=== PATIENT | male | born 1985 | race Caucasian/White ===

== ENCOUNTER 2017-04-07 17:39 | Inpatient (IN) | payer OTHER ==
[~2017-04-07] VITALS: Ht 182.9 cm; Wt 82.1 kg
[~2017-04-07 17:39] MED LIST: CITA20TA4 PO; HYDR-3533 PO; IBUP600T26 PO; METH750T2 PO; PHEN1TAB49 PO; TAMS0.4C67 PO
[2017-04-07 17:42] VITALS: BP 130/102; PULSE 77; RESP 15; TEMP 97.8; O2SAT 99
[2017-04-07] MEDS ORDERED: SODIUM CHLOR 0.9% 1000 ML INJ 1,000 ML IV SCH (19:58)
[2017-04-07 20:00] VITALS: BP 132/88; PULSE 65; RESP 18; O2SAT 98
[2017-04-07] MEDS ORDERED: SODIUM CHLORIDE 0.9% FLUSH 10 ML FLUSH IVF PRN (20:00)
[2017-04-07] MEDS ORDERED: ONDANSETRON HCL 4 MG/2 ML VIAL IVP ONE (20:00)
[2017-04-07] MEDS ORDERED: PANTOPRAZOLE SODIUM 40 MG VIAL IVP ONE (20:00)
--- NOTE | 2017-04-07 20:05 | PD ---
HPI Chief Complaint: GI Complaint Time Seen by Provider: 20:00 Travel History International Travel<30 days: No Contact w/Intl Traveler<30days: No Traveled to known affect area: No History of Present Illness HPI Patient comes in complaining of daily vomiting and diarrhea ongoing for 3 years. Patient states feels like his stomach is on fire. Patient reports he had a endoscopy done 3 or 4 months ago but has not followed up and told everything was fine initially. Patient's uncertain if there were any biopsies done. Patient states vomiting is primarily in the morning. Patient states he' s been placed on Xanax and has to seem to help initially but no longer helps. Patient's symptoms began a few months after leaving the . Patient denies any chest pain, shortness of breath, or back pain. Patient reports subjective fevers and chills. Patient reports blood in vomit and stool that is bright red. Patient states that drinking monster energy drinks used to help calm his stomach, but no longer do. Patient admits to drinking alcohol on rare occasions and occasionally smoking marijuana. Denies any other drug use. Patient reports recent weight loss secondary not being able to keep any food down. Patient is a different take leftover Loricet's recently for the pain, which has helped some. PFSH Past Medical History Anxiety: Yes Depression: Yes Diminished Hearing: No Herniated Disk: Yes Kidney Stones: Yes Past Surgical History Genitourinary Surgery: Yes (STENTS/REMOVED) Tonsillectomy: Yes (T&A) Other Surgery: Yes (LITHOTRIPSY) Social History Alcohol Use: Yes (DAILY TO EAT) Tobacco Use: Yes (1/2 PPD) Substance Use: No Allergies-Medications (Allergen,Severity, Reaction): Coded Allergies: No Known Allergies (Unverified , 04/07/17) Reported Meds & Prescriptions Reported Meds & Active Scripts Active Lortab 5 mg/325 mg (Hydrocodone/Acetaminophen 5 mg/325 mg) 1 Tab 1 Tab PO Q6H PRN Pyridium (Phenazopyridine HCl) 100 Mg Tab 100 Mg PO Q8 Flomax (Tamsulosin HCl) 0.4 Mg Cap 0.4 Mg PO DAILY Reported Ibuprofen 600 Mg Tab 600 Mg PO Q8H PRN Robaxin (Methocarbamol) 750 Mg Tab 750 Mg PO BID Citalopram Hydrobromide 20 Mg Tab 20 Mg PO DAILY Review of Systems Except as stated in HPI: all other systems reviewed are Neg Physical Exam Narrative GENERAL: Well-developed, well nourished, in no acute distress, and non-ill appearing. SKIN: Focused skin assessment warm and dry. HEAD: Atraumatic. Normocephalic. EYES: Pupils equal and round. EOMI. No scleral icterus. No injection or drainage. ENT: No nasal bleeding or discharge. Mucous membranes pink and moist. NECK: Trachea midline. No JVD. Supple. No nuclear rigidity. CARDIOVASCULAR: Regular rate and rhythm. No murmur appreciated. RESPIRATORY: No accessory muscle use. No respiratory distress. Clear to auscultation. Breath sounds equal bilaterally. GASTROINTESTINAL: Abdomen soft, non-tender, nondistended, and no guarding. Hepatic and splenic margins not palpable. Normal bowel sounds 4. No pulsatile mass. MUSCULOSKELETAL: No obvious deformities. No clubbing. No cyanosis. No edema. Full range of motion. NEUROLOGICAL: Awake and alert. No obvious cranial nerve deficits. Motor grossly within normal limits. Normal speech. PSYCHIATRIC: Appropriate mood and affect; insight and judgment normal. Data Data Last Documented VS Vital Signs Date Time Temp Pulse Resp B/P Pulse Ox O2 Delivery O2 Flow Rate FiO2 04/08/17 10:05 78 18 137/90 100 Room Air 04/07/17 17:42 97.8 Orders Complete Blood Count With Diff (04/07/17 19:28) Comprehensive Metabolic Panel (04/07/17 19:28) Lipase (04/07/17 19:28) Prothrombin Time / Inr (Pt) (04/07/17 19:28) Act Partial Throm Time (Ptt) (04/07/17 19:28) Urinalysis - C+S If Indicated (04/07/17 19:28) Type And Screen (04/07/17 19:28) Ecg Monitoring (04/07/17 19:58) Iv Access Insert/Monitor (04/07/17 19:58) Oximetry (04/07/17 19:58) Ondansetron Inj (Zofran Inj) (04/07/17 20:00) Pantoprazole Inj (Protonix Inj) (04/07/17 20:00) Sodium Chlor 0.9% 1000 Ml Inj (Ns 1000 M (04/07/17 19:58) Sodium Chloride 0.9% Flush (Ns Flush) (04/07/17 20:00) Drug Screen, Random Urine (04/07/17 19:58) Alcohol (Ethanol) (04/07/17 19:58) Sodium Chlor 0.9% 1000 Ml Inj (Ns 1000 M (04/07/17 22:00) Psych Screen (04/07/17 22:10) Lorazepam Inj (Ativan Inj) (04/07/17 22:45) Lorazepam Inj (Ativan Inj) (04/08/17 02:15) Ondansetron Odt (Zofran Odt) (04/08/17 10:15) Diet Regular Basic (04/08/17 Lunch) Labs Laboratory Tests Test 04/07/17 04/07/17 04/07/17 19:54 20:20 22:30 White Blood Count 7.1 TH/MM3 Red Blood Count 5.40 MIL/MM3 Hemoglobin 17.1 GM/DL Hematocrit 50.4 % Mean Corpuscular Volume 93.4 FL Mean Corpuscular Hemoglobin 31.7 PG Mean Corpuscular Hemoglobin 34.0 % Concent Red Cell Distribution Width 12.8 % Platelet Count 185 TH/MM3 Mean Platelet Volume 8.2 FL Neutrophils (%) (Auto) % Lymphocytes (%) (Auto) % Monocytes (%) (Auto) % Eosinophils (%) (Auto) % Basophils (%) (Auto) % Neutrophils # (Auto) TH/MM3 Lymphocytes # (Auto) TH/MM3 Monocytes # (Auto) TH/MM3 Eosinophils # (Auto) TH/MM3 Basophils # (Auto) TH/MM3 CBC Comment AUTO DIFF Differential Total Cells 100 Counted Neutrophils % (Manual) 53 % Band Neutrophils % 1 % Lymphocytes % 37 % Monocytes % 9 % Neutrophils # (Manual) 3.8 TH/MM3 Differential Comment FINAL DIFF MANUAL Platelet Estimate NORMAL Platelet Morphology Comment NORMAL Red Cell Morphology Comment NORMAL Prothrombin Time 11.9 SEC Prothromb Time International 1.1 RATIO Ratio Activated Partial 28.6 SEC Thromboplast Time Sodium Level 138 MEQ/L Potassium Level 4.6 MEQ/L Chloride Level 104 MEQ/L Carbon Dioxide Level 28.4 MEQ/L Anion Gap 6 MEQ/L Blood Urea Nitrogen 13 MG/DL Creatinine 1.05 MG/DL Estimat Glomerular Filtration 82 ML/MIN Rate Random Glucose 90 MG/DL Calcium Level 9.5 MG/DL Total Bilirubin 0.6 MG/DL Aspartate Amino Transf 15 U/L (AST/SGOT) Alanine Aminotransferase 21 U/L (ALT/SGPT) Alkaline Phosphatase 91 U/L Total Protein 8.8 GM/DL Albumin 5.0 GM/DL Lipase 139 U/L Ethyl Alcohol Level LESS THAN 3 MG/DL Blood Type O POSITIVE Antibody Screen NEGATIVE Blood Bank Comment Urine Opiates Screen POS Urine Barbiturates Screen NEG Urine Amphetamines Screen NEG Urine Benzodiazepines Screen POS Urine Cocaine Screen NEG Urine Cannabinoids Screen POS Urine Color DARK-YELLOW Urine Turbidity CLEAR Urine pH 8.5 Urine Specific [place] 1.039 Urine Protein 30 mg/dL Urine Glucose (UA) NEG mg/dL Urine Ketones 40 mg/dL Urine Occult Blood NEG Urine Nitrite NEG Urine Bilirubin NEG Urine Urobilinogen 2.0 MG/DL Urine Leukocyte Esterase NEG Urine RBC 2 /hpf Urine WBC 1 /hpf Urine Mucus MANY /lpf Microscopic Urinalysis Comment CULT NOT INDICATED MDM Medical Decision Making Medical Screen Exam Complete: Yes Emergency Medical Condition: Yes Differential Diagnosis Anemia, GI bleed, chronic abdominal pain, electrical abnormality, stress, anxiety, PTSD, other Narrative Course 2154 patient reassessed. Awaiting urine. Discussed with patient possibility stay and talk to psych in the morning as patient reports he has a history of PTSD has nightmares at night. This may be causing his symptoms is reports vomiting is primarily first thing in the morning. 2234 patient reassessed. Patient willing to stay for voluntary psychiatric evaluation at this time. Patient reports feeling somewhat anxious, but is willing to stay. The patient's labs were reviewed. Patient was not anemic or other signs of infection noted at this time. UA still pending. Discussed patient with Dr. Alvarez, who is in agreement with plan of care and disposition. Patient medically cleared for further treatment and evaluation by psych. Final disposition per psych. Diagnosis Primary Impression: Medical clearance for psychiatric admission Additional Impression: Vomiting and diarrhea Additional Instructions: Follow-up with your primary care physician in 2-3 days for reevaluation. Follow up with GI next week for previous endoscopy results and further evaluation. Return to the emergency department if symptoms get worse. Condition: Stable Olvin Landa Apr 07, 2017 20:05
[2017-04-07 20:11] LABS: APTT (PATIENT) 28.6 SEC (24.3-30.1); INTERNATIONAL NORMALIZED RATIO 1.1 RATIO; PROTHROMBIN TIME - PATIENT 11.9 SEC (9.8-11.6)
[2017-04-07 20:12] LABS: HEMATOCRIT 50.4 % (39.0-51.0); MEAN CELL VOLUME 93.4 FL (80.0-100.0); MEAN CORPUSCULAR HEMOGLOBIN 31.7 PG (27.0-34.0); PLATELET COUNT 185 TH/MM3 (150-450); RED CELL DISTRIBUTION WIDTH 12.8 % (11.6-17.2); WHITE BLOOD COUNT 7.1 TH/MM3 (4.0-11.0)
[2017-04-07 20:22] LABS: HEMO FLAGS AUTO DIFF
[2017-04-07 20:30] LABS: ANION GAP 6 MEQ/L (5-15); AST (GOT) 15 U/L (15-37); BICARBONATE 28.4 MEQ/L (21.0-32.0); BLOOD UREA NITROGEN 13 MG/DL (7-18); CHLORIDE 104 MEQ/L (98-107); GLOMERULAR FILTRATION RATE 82 ML/MIN (>89); POTASSIUM 4.6 MEQ/L (3.5-5.1); SODIUM (NA) 138 MEQ/L (136-145)
[2017-04-07 20:31] LABS: ALT (GPT) 21 U/L (12-78)
[2017-04-07 20:33] LABS: ALKALINE PHOSPHATASE 91 U/L (45-117); TOTAL BILIRUBIN ADULT 0.6 MG/DL (0.2-1.0)
[2017-04-07 20:54] LABS: BANDS 1 % (0-6); NEUTROPHIL # MANUAL DIFF 3.8 TH/MM3 (1.8-7.7); PLATELET ESTIMATE SMEAR NORMAL (NORMAL); PLATELET MORPHOLOGY NORMAL (NORMAL); POLYS (SEG NEUTROPHILS) 53 % (16-70); SCAN/DIFF FINAL DIFF MANUAL; WBC DIFF SAMPLE 100
[2017-04-07 21:30] VITALS: BP 127/80; PULSE 66; RESP 18; O2SAT 100
[2017-04-07] MEDS ORDERED: SODIUM CHLOR 0.9% 1000 ML INJ 1,000 ML IV ONE (22:00)
[2017-04-07] MEDS ORDERED: LORazepam 2 MG/ML VIAL IV PUSH ONE (22:45)
[2017-04-07 22:49] VITALS: BP 117/74; PULSE 70; RESP 18; O2SAT 100
[2017-04-08] MEDS: SODIUM CHLOR 0.9% 1000 ML INJ 1,000 ML IV SCH (01:10)
[2017-04-08] MEDS ORDERED: LORazepam 2 MG/ML VIAL IV PUSH ONE (02:15)
[2017-04-08 02:30] VITALS: BP 122/68; PULSE 63; RESP 18; O2SAT 99
[2017-04-08 03:30] LABS: BLOOD, URINE NEG (NEG); COMMENT (UR) CULT NOT INDICATED; CULTURE IF INDICATED CULT NOT INDICATED; GLUCOSE,URINE NEG (NEG); KETONE, URINE 40 mg/dL (NEG); MUCUS URINE MANY /lpf (OCC); NITRITE,URINE NEG (NEG); PH, URINE 8.5 (5.0-8.5); URINE COLOR DARK-YELLOW (YELLW/STRAW)
[2017-04-08 08:40] VITALS: BP 129/89; PULSE 74; RESP 18; O2SAT 99
[2017-04-08 10:05] VITALS: BP 137/90; PULSE 78; RESP 18; O2SAT 100
[2017-04-08] MEDS ORDERED: ONDANSETRON ODT 4 MG TAB PO ONE (10:15)
[2017-04-08] MEDS ORDERED: PROMETHAZINE HCL 25 MG TAB PO ONE (12:00)
[2017-04-08] MEDS ORDERED: CITA10TA4 PO (12:37)
[2017-04-08] MEDS ORDERED: XANA1TAB2 PO (12:37)
[2017-04-08] MEDS ORDERED: MAGNESIUM HYDROXIDE SUSP 30 ML CUP PO PRN (13:00)
[2017-04-08] MEDS ORDERED: LORazepam 2 MG/ML VIAL IM PRN ×2 (13:00)
[2017-04-08] MEDS ORDERED: LORazepam 0.5 MG TAB PO PRN (13:00)
[2017-04-08] MEDS ORDERED: ALUMINUM/MAGNESIUM/SIMETH 30 ML CUP PO PRN (13:00)
[2017-04-08] MEDS: NICOTINE 21 MG/24 HR PATCH T-DERMAL SCH (13:18)
[2017-04-08] MEDS: LORazepam 1 MG TAB PO PRN ×2 (13:19→19:53)
[2017-04-08 15:15] VITALS: BP 138/79; PULSE 70; RESP 16; TEMP 98; O2SAT 98
[2017-04-08] MEDS: PANTOPRAZOLE SOD 40 MG DELAYED RELEASE TAB PO SCH (15:45)
[2017-04-08] MEDS ORDERED: SUCRALFATE 1 GM/10 ML CUP PO ONE (15:45)
--- NOTE | 2017-04-08 15:58 | PD.CONS ---
HPI Service [facility] Hospitalists Consult Requested By Dr. Knutson Reason for Consult Emesis Primary Care Physician [facility] Diagnoses: History of Present Illness Written by Ivette Toledo, acting as scribe for Dr. Gore on 04/08/17 at 15:44. This is a 31-year-old male patient with a past medical history which includes PTSD, depression/anxiety, herniated disc 3, prior renal stones. Patient is currently in inpatient psychiatric center. We have been consulted due to emesis. Patient reports he has been vomiting for the past 3 years. Patient reports his vomiting episodes usually occur in the mornings. The vomiting episodes have been progressively worsening over the past week. Patient reports he started vomiting bright red blood last week but has not vomited blood for the past 2 days. Patient also reports associated stomach pains which he describes as a severe burning sensation greater than 10 out of 10 in severity diffusely localized, non radiating. Patient reports loss of appetite and diarrhea as well. Patient reports he has 3-4 loose bowel movements in the mornings which are black in color with mucus present. Patient has lost 20 pounds over the past week. Patient denies fevers but states has had chills. Patient denies chest pain shortness of breath or fevers. Review of Systems Except as stated in HPI: all other systems reviewed are Neg Past Family Social History Allergies: Coded Allergies: No Known Allergies (Unverified , 04/07/17) Past Medical History PTSD, depression/anxiety, herniated disc 3, prior renal stones Past Surgical History Tonsillectomy, adenoidectomy, lithotripsy, ureter stent placed and removed Reported Medications Xanax (Alprazolam) 1 Mg Tab 1 Mg PO BID PRN Citalopram (Citalopram Hydrobromide) 10 Mg Tab 15 Mg PO DAILY Active Ordered Medications Current Medications Medications (Trade) Dose Ordered Sig/Roque Route Start Time Stop Time Status Last Admin (NS Flush) 2 ml UNSCH PRN IVF 04/07/17 20:00 (Ativan) 1 mg Q6H PRN PO 04/08/17 13:00 04/08/17 13:19 (Ativan Inj) 1 mg Q6H PRN IM 04/08/17 13:00 (Tylenol) 650 mg Q4H PRN PO 04/08/17 13:00 (Milk Of Magnesia Liq) 30 ml DAILY PRN PO 04/08/17 13:00 (Mag-Al Plus Susp Liq) 30 ml Q6H PRN PO 04/08/17 13:00 (Habitrol 21 Mg Patch.24 Hr) 1 patch DAILY T-DERMAL 04/08/17 13:15 04/08/17 13:18 Miscellaneous Information 1 DAILY T-DERMAL 04/09/17 09:00 (CeleXA) 20 mg DAILY PO 04/09/17 09:00 Family History Father had stomach cancer, cirrhosis and lung Ca Social History Denies EtOH use Smokes approximately 2 packs a day Reports he has marijuana recently for pain relief denies other illicit drug use Physical Exam Vital Signs Vital Signs Date Time Temp Pulse Resp B/P Pulse Ox O2 Delivery O2 Flow Rate FiO2 04/08/17 15:15 98.0 70 16 138/79 98 04/08/17 10:05 78 18 137/90 100 Room Air 04/08/17 08:40 74 18 129/89 99 Room Air 04/08/17 02:30 63 18 122/68 99 Room Air 04/07/17 22:49 70 18 117/74 100 Room Air 04/07/17 21:30 66 18 127/80 100 Room Air 04/07/17 20:00 65 18 132/88 98 Room Air 04/07/17 17:42 97.8 77 15 130/102 99 Physical Exam GENERAL: This is a well-nourished, well-developed patient, in no apparent distress. SKIN: No rashes, ecchymoses or lesions. Cool and dry. HEAD: Atraumatic. Normocephalic. No temporal or scalp tenderness. EYES: Extraocular motions intact. Mild scleral icterus. No injection or drainage. ENT: Nose without bleeding, purulent drainage or septal hematoma. Throat without erythema, tonsillar hypertrophy or exudate. Uvula midline. Airway patent. NECK: Trachea midline. No JVD or lymphadenopathy. Supple, nontender, no meningeal signs. CARDIOVASCULAR: Regular rate and rhythm without murmurs, gallops, or rubs. RESPIRATORY: Clear to auscultation. Breath sounds equal bilaterally. No wheezes , rales, or rhonchi. GASTROINTESTINAL: Abdomen soft, nondistended. Hyperactive bowel sounds 4 quadrants. Tender to palpation worse in the epigastric area. MUSCULOSKELETAL: Extremities without clubbing, cyanosis, or edema. No joint tenderness, effusion, or edema noted. No calf tenderness. Negative Homans sign bilaterally. NEUROLOGICAL: Awake and alert. No focal deficits appreciated Motor and sensory grossly within normal limits. Five out of 5 muscle strength in all muscle groups. Normal speech. Laboratory Laboratory Tests Test 04/07/17 04/07/17 04/07/17 19:54 20:20 22:30 White Blood Count 7.1 Red Blood Count 5.40 Hemoglobin 17.1 Hematocrit 50.4 Mean Corpuscular Volume 93.4 Mean Corpuscular Hemoglobin 31.7 Mean Corpuscular Hemoglobin 34.0 Concent Red Cell Distribution Width 12.8 Platelet Count 185 Mean Platelet Volume 8.2 Neutrophils (%) (Auto) Lymphocytes (%) (Auto) Monocytes (%) (Auto) Eosinophils (%) (Auto) Basophils (%) (Auto) Neutrophils # (Auto) Lymphocytes # (Auto) Monocytes # (Auto) Eosinophils # (Auto) Basophils # (Auto) CBC Comment AUTO DIFF Differential Total Cells 100 Counted Neutrophils % (Manual) 53 Band Neutrophils % 1 Lymphocytes % 37 Monocytes % 9 Neutrophils # (Manual) 3.8 Differential Comment FINAL DIFF MANUAL Platelet Estimate NORMAL Platelet Morphology Comment NORMAL Red Cell Morphology Comment NORMAL Prothrombin Time 11.9 Prothromb Time International 1.1 Ratio Activated Partial 28.6 Thromboplast Time Sodium Level 138 Potassium Level 4.6 Chloride Level 104 Carbon Dioxide Level 28.4 Anion Gap 6 Blood Urea Nitrogen 13 Creatinine 1.05 Estimat Glomerular Filtration 82 Rate Random Glucose 90 Calcium Level 9.5 Total Bilirubin 0.6 Aspartate Amino Transf 15 (AST/SGOT) Alanine Aminotransferase 21 (ALT/SGPT) Alkaline Phosphatase 91 Total Protein 8.8 Albumin 5.0 Lipase 139 Ethyl Alcohol Level LESS THAN 3 Blood Type O POSITIVE Antibody Screen NEGATIVE Blood Bank Comment Urine Opiates Screen POS Urine Barbiturates Screen NEG Urine Amphetamines Screen NEG Urine Benzodiazepines Screen POS Urine Cocaine Screen NEG Urine Cannabinoids Screen POS Urine Color DARK-YELLOW Urine Turbidity CLEAR Urine pH 8.5 Urine Specific [place] 1.039 Urine Protein 30 Urine Glucose (UA) NEG Urine Ketones 40 Urine Occult Blood NEG Urine Nitrite NEG Urine Bilirubin NEG Urine Urobilinogen 2.0 Urine Leukocyte Esterase NEG Urine RBC 2 Urine WBC 1 Urine Mucus MANY Microscopic Urinalysis Comment CULT NOT INDICATED Result Diagram: 04/07/17195304/07/171953 Assessment and Plan Assessment and Plan This is a 31-year-old male patient with a past medical history which includes PTSD, depression/anxiety, herniated disc 3, prior renal stones. Patient is currently in inpatient psychiatric center. We have been consulted due to emesis. Patient reports he has been vomiting for the past 3 years. Patient reports his vomiting episodes usually occur in the mornings. The vomiting episodes have been progressively worsening over the past week. Patient reports he started vomiting bright red blood last week but has not vomited blood for the past 2 days. Patient also reports associated stomach pains which he describes as a severe burning sensation greater than 10 out of 10 in severity. Patient reports loss of appetite and diarrhea as well. Patient reports he has 3 -4 loose bowel movements in the mornings which are black in color with mucus present. Patient has lost 20 pounds over the past week. PTSD Anxiety/depression Suicidal ideation management per psychiatric team Nausea/vomiting Diarrhea Abdominal pain Weight loss CT scan abdomen/pelvis from February 23, 2017 reviewed and reveals 3 mm nonobstructing left renal stone Repeat CT scan abdomen/pelvis today Stool studies for ova, parasites IV fluids for hydration Clear liquid diet fluids recheck labs in a.m. Start Protonix 40 mg twice a day Start Carafate GI consult HIV screen ESR, CRP DVT prophylaxis patient is ambulatory and low risk This note was transcribed by danilo Toledo. I, Dr. Agapito Cuellar personally performed the history, physical exam, and medical decision making; and confirmed the accuracy of the information in the transcribed note. Authenticated by Dr. Agapito Cuellar on 04/08/17 at 16:00. Ivette Toledo Apr 08, 2017 15:58 Agapito So MD Apr 09, 2017 15:06
[2017-04-08] MEDS: SUCRALFATE 1 GM/10 ML CUP PO SCH (16:00)
[2017-04-09] MEDS: SUCRALFATE 1 GM/10 ML CUP PO SCH ×5 (00:21→20:37)
[2017-04-09] MEDS: SODIUM CHLOR 0.9% 1000 ML INJ 1,000 ML IV SCH ×5 (01:45→23:00)
[2017-04-09] MEDS: ACETAMINOPHEN 325 MG TAB PO PRN (02:13)
[2017-04-09] MEDS: LORazepam 1 MG TAB PO PRN ×3 (02:13→21:33)
[2017-04-09 05:21] VITALS: BP 106/59; PULSE 63; RESP 17; TEMP 97.6; O2SAT 100
[2017-04-09 05:46] LABS: HEMATOCRIT 41.2 % (39.0-51.0); MEAN CELL VOLUME 93.3 FL (80.0-100.0); MEAN CORPUSCULAR HEMOGLOBIN 32.1 PG (27.0-34.0); MEAN CORPUSCULAR HGB CONC 34.3 % (32.0-36.0); PLATELET COUNT 147 TH/MM3 (150-450); RED BLOOD COUNT 4.41 MIL/MM3 (4.50-5.90); RED CELL DISTRIBUTION WIDTH 12.5 % (11.6-17.2); REVIEW FLAG FINAL
[2017-04-09 06:48] LABS: ANION GAP 8 MEQ/L (5-15); BICARBONATE 26.6 MEQ/L (21.0-32.0); BLOOD UREA NITROGEN 10 MG/DL (7-18); CHLORIDE 106 MEQ/L (98-107); GLOMERULAR FILTRATION RATE 104 ML/MIN (>89); POTASSIUM 3.4 MEQ/L (3.5-5.1); SODIUM (NA) 141 MEQ/L (136-145)
[2017-04-09 07:04] LABS: HDL CHOLESTEROL 36.9 MG/DL (40.0-60.0); LDL CHOLESTEROL 131 MG/DL (0-99)
[2017-04-09] MEDS: PANTOPRAZOLE SOD 40 MG DELAYED RELEASE TAB PO SCH (08:00)
[2017-04-09] MEDS: CITALOPRAM HYDROBROMIDE 20 MG TAB PO SCH ×2 (08:00→08:05)
[2017-04-09] MEDS: NICOTINE 21 MG/24 HR PATCH T-DERMAL SCH (08:00)
[2017-04-09] MEDS: REMOVE OLD PATCH T-DERMAL SCH (08:00)
[2017-04-09] MEDS: MORPHINE SULFATE 4 MG/ML INJ IV PRN ×3 (14:33→23:26)
[2017-04-09] MEDS: ONDANSETRON HCL 4 MG/2 ML VIAL IV PUSH PRN ×2 (14:39→23:26)
--- NOTE | 2017-04-09 14:42 | PD.CONS ---
HPI History of Present Illness Patient was seen at 1000, this is late entry due to down time This is a 31 year old with a past medical history which includes PTSD, depression/anxiety, herniated disc 3, prior renal stones who is in psychiatric center due to possible suicidal ideation, chronic GI issues that include N/V for 3 years. Emesis episodes usually occur in the mornings. The vomiting episodes have been progressively worsening over the past week. He noticed some hematemesis, but it has been few days since noticing blood in the vomit. [facility] he had other GI work up in the past 3 yrs, but nothing came back explaining patient presentation. He is not sure what he had done. Denies ever having Colonoscopy. Denies alcohol or illicit drugs although toxicology came back (+) for Cannabinoids, however he told other provider that he had marijuana recently for pain relief. Patient also reports associated epigastric pain which is described as a severe burning sensation greater than 10 out of 10 in severity. Patient reports loss of appetite and diarrhea as well. Patient reports 3-4 loose bowel movements in the mornings. Reports some intermittent melena, with mucous. Patient has lost 20 pounds over the past week. Patient is having dry heaving during the exam and brining up small amount of frothy clear emesis. States he has been living mainly on insure and supplement drinks. He had a decline in H&H on (04/07/17) 17.1/50.4--->14.1/93.3 on (04/09/17). Ct done and that showed non obstructive renal stone. (Xochitl Guardado) PFSH Past Medical History PTSD, depression/anxiety, herniated disc 3, prior renal stones Past Surgical History Tonsillectomy, adenoidectomy, lithotripsy, ureter stent placed and removed, EGD (Xochitl Guardado) Coded Allergies: No Known Allergies (Unverified , 04/07/17) Medications Current Medications Medications (Trade) Dose Ordered Sig/Roque Route Start Time Stop Time Status Last Admin (NS Flush) 2 ml UNSCH PRN IVF 04/07/17 20:00 (Ativan) 1 mg Q6H PRN PO 04/08/17 13:00 04/09/17 08:05 (Ativan Inj) 1 mg Q6H PRN IM 04/08/17 13:00 (Tylenol) 650 mg Q4H PRN PO 04/08/17 13:00 04/09/17 02:13 (Milk Of Magnesia Liq) 30 ml DAILY PRN PO 04/08/17 13:00 (Mag-Al Plus Susp Liq) 30 ml Q6H PRN PO 04/08/17 13:00 04/08/17 20:16 (Habitrol 21 Mg Patch.24 Hr) 1 patch DAILY T-DERMAL 04/08/17 13:15 04/09/17 08:00 Miscellaneous Information 1 DAILY T-DERMAL 04/09/17 09:00 04/09/17 08:00 (CeleXA) 20 mg DAILY PO 04/09/17 09:00 04/09/17 08:05 (Protonix) 40 mg DAILY PO 04/08/17 15:45 04/09/17 08:00 (Carafate Liq) 1 gm ACHS PO 04/08/17 16:00 04/09/17 11:00 Sodium Chloride 1,000 ml @ 100 mls/hr Q10H IV 04/08/17 15:45 04/09/17 13:22 Family History Father had stomach cancer, cirrhosis and lung Ca Social History Denies EtOH use Smokes approximately 2 packs a day Denies illicit drug use, however he told other provider that he had marijuana recently for pain relief (Xochitl Guardado) Review of Systems Constitutional: COMPLAINS OF: Weight loss, Change in appetite Endocrine: DENIES: Polyuria Eyes: DENIES: Double Vision Ears, nose, mouth, throat: DENIES: Hoarseness Respiratory: DENIES: Shortness of breath Gastrointestinal: COMPLAINS OF: Abdominal pain, Black stools, Diarrhea, Nausea , Vomiting, Anorexia, Hematemesis, DENIES: Bloody stools, Constipation, Difficulty Swallowing, Odynophagia, Swelling of Abdomen, Heartburn Genitourinary: DENIES: Hematuria Musculoskeletal: DENIES: Back pain Integumentary: DENIES: Jaundice Hematologic/lymphatic: DENIES: Bruising Immunologic/allergic: DENIES: Eczema Neurologic: DENIES: Abnormal gait Psychiatric: COMPLAINS OF: Anxiety, DENIES: Suicidal Ideation (Xochitl Guardado) GI Exam Vitals I&O Vital Signs Date Time Temp Pulse Resp B/P (MAP) Pulse Ox O2 Delivery O2 Flow Rate FiO2 04/09/17 05:21 97.6 63 17 106/59 (75) 100 04/08/17 15:15 98.0 70 16 138/79 (98) 98 I/O 04/08/17 04/08/17 04/08/17 04/09/17 04/09/17 04/09/17 07:00 15:00 23:00 07:00 15:00 23:00 Intake Total 600 ml 469 ml 477 ml Balance 600 ml 469 ml 477 ml Intake Oral 600 ml IV Total 469 ml 477 ml # Voids 3 Laboratory Test 04/08/17 19:08 04/09/17 05:20 Erythrocyte Sedimentation Rate 1 mm/hr White Blood Count 7.0 TH/MM3 Red Blood Count 4.41 MIL/MM3 Hemoglobin 14.1 GM/DL Hematocrit 41.2 % Mean Corpuscular Volume 93.3 FL Mean Corpuscular Hemoglobin 32.1 PG Mean Corpuscular Hemoglobin Concent 34.3 % Red Cell Distribution Width 12.5 % Platelet Count 147 TH/MM3 Mean Platelet Volume 8.8 FL Blood Urea Nitrogen 10 MG/DL Creatinine 0.86 MG/DL Random Glucose 87 MG/DL Calcium Level 8.8 MG/DL Sodium Level 141 MEQ/L Potassium Level 3.4 MEQ/L Chloride Level 106 MEQ/L Carbon Dioxide Level 26.6 MEQ/L Anion Gap 8 MEQ/L Estimat Glomerular Filtration Rate 104 ML/MIN C-Reactive Protein LESS THAN 0.29 MG/DL Triglycerides Level 86 MG/DL Cholesterol Level 185 MG/DL LDL Cholesterol 131 MG/DL HDL Cholesterol 36.9 MG/DL Cholesterol/HDL Ratio 5.01 RATIO Thyroid Stimulating Hormone 3rd Gen 0.455 uIU/ML Date/Time Source Procedure Growth Status 04/09/17 10:00 Stool Stool Pending Received Physical Examination HEENT: normocephalic; atraumatic; no jaundice. NECK: Neck is supple, no JVD, no lymphadenopathy. CHEST: Chest is clear to auscultation and percussion. CARDIAC: Regular rate and rhythm with no murmur gallop or rubs. ABDOMEN: Soft, nondistended, epigastric pain, no hepatosplenomegaly; bowel sounds are present in all four quadrants. EXTREMITIES: No clubbing, cyanosis, or edema. SKIN: Normal; no rash; no jaundice. PIGMENT FURNACE TENDER: No focal deficits; alert and oriented times three. (Xochitl Guardado) Assessment and Plan Plan - Ongoing N/V for 3 years ( unclear etiology)- Progressively worsening, reports hematemesis/melena, loss of appetite, wt loss, living on insure and nutrient supplement drop in hgb from 17 to 14Recent [facility], other GI work up negative, ( not sure what he had done) denies colonoscopy Lipase, LFTs normal, ESR, C-Rp normal. Ct showed non obstructive renal stones. - Epigastric pain- Ct as above, PPI - Diarrhea- Loose stools, 3-4 times daily, stools cx pending - Wt loss of 20 ibs in the last week - Hypokalemia- Secondary to above, per attending - Anxiety, PTSD, per attending Plan: - Clear liquids - EGD/colonoscopy in am - Golytely today - NPO MN - Await stools cx - Cont PPI - Monitor hh - Transfuse as needed - If above negative, consider GES, HIDA scan - Supportive care - Patient seen and examined by Dr. Jensen and myself and this note is written on his behalf. (Xochitl Guardado) Physician Comments Seen and examined, plan as above, will schedule the procedures in AM. (Kannan Jensen MD) Xochitl Guardado Apr 09, 2017 14:42 Kannan Jensen MD Apr 09, 2017 15:19
--- NOTE | 2017-04-09 15:22 | HHI.PR ---
Subjective Remarks deferred entry - patient seen on 11:30 Patient c/o nausea c/o abdominal pain has vomited earlier today. Objective Vitals Vital Signs Date Time Temp Pulse Resp B/P (MAP) Pulse Ox O2 Delivery O2 Flow Rate FiO2 04/09/17 05:21 97.6 63 17 106/59 (75) 100 I/O 04/08/17 04/08/17 04/08/17 04/09/17 04/09/17 04/09/17 07:00 15:00 23:00 07:00 15:00 23:00 Intake Total 600 ml 469 ml 477 ml Balance 600 ml 469 ml 477 ml Intake Oral 600 ml 0 ml IV Total 469 ml 477 ml # Voids 3 # Bowel Movements 1 Result Diagram: 04/09/1751904/09/17519 Objective Remarks AAox3 , seems in mild distress due to abdominal pain Clear lungs BL abdomen soft diffusely tender to palpation, there is voluntary guarding no belem ain lower extremities. Medications and IVs Current Medications Medications (Trade) Dose Ordered Sig/Roque Route Start Time Stop Time Status Last Admin (NS Flush) 2 ml UNSCH PRN IVF 04/07/17 20:00 (Ativan) 1 mg Q6H PRN PO 04/08/17 13:00 04/09/17 08:05 (Ativan Inj) 1 mg Q6H PRN IM 04/08/17 13:00 (Tylenol) 650 mg Q4H PRN PO 04/08/17 13:00 04/09/17 02:13 (Milk Of Magnesia Liq) 30 ml DAILY PRN PO 04/08/17 13:00 (Mag-Al Plus Susp Liq) 30 ml Q6H PRN PO 04/08/17 13:00 04/08/17 20:16 (Habitrol 21 Mg Patch.24 Hr) 1 patch DAILY T-DERMAL 04/08/17 13:15 04/09/17 08:00 Miscellaneous Information 1 DAILY T-DERMAL 04/09/17 09:00 04/09/17 08:00 (CeleXA) 20 mg DAILY PO 04/09/17 09:00 04/09/17 08:05 (Protonix) 40 mg DAILY PO 04/08/17 15:45 04/09/17 08:00 (Carafate Liq) 1 gm ACHS PO 04/08/17 16:00 04/09/17 11:00 Sodium Chloride 1,000 ml @ 100 mls/hr Q10H IV 04/08/17 15:45 04/09/17 13:22 (Zofran Inj) 4 mg Q4H PRN IV PUSH 04/09/17 14:15 04/09/17 14:39 (Morphine Inj) 2 mg Q3H PRN IV 04/09/17 14:15 04/09/17 14:33 (Colyte Liq) 4,000 ml ONCE ONCE PO 04/09/17 16:00 04/09/17 16:01 Urinary Catheter: No Vascular Central Line Catheter: No A/P Problem List: (1) Abdominal pain ICD Code: R10.9 - Unspecified abdominal pain Plan: Patient has chronic abdominal pain GI consulted - plan for colonoscopy in am. Rx IV morphine Continue PPI clear liquid diet NPO at midnight (2) Diarrhea ICD Code: R19.7 - Diarrhea, unspecified Plan: stool studies ordered and pending. (3) Nausea & vomiting ICD Code: R11.2 - Nausea with vomiting, unspecified Plan: Will Rx Zofran Continue IV fluids (4) Weight loss ICD Code: R63.4 - Abnormal weight loss Plan: Likely due to poor oral intake Monitor weight (5) Hypokalemia ICD Code: E87.6 - Hypokalemia Plan: Replace orally and continue to monitor BMP (6) Depression ICD Code: F32.9 - Major depressive disorder, single episode, unspecified Plan: Continue Citalopram. Management as per psychiatry. (7) Hematemesis ICD Code: K92.0 - Hematemesis Plan: reports of hematemesis 3 days ago, no further hematemesis Continue PPI. Assessment and Plan GI prophylaxis: PPI DVT Prophylaxis: Encourage ambulation, no chemoprophylaxis due to reports of hematemesis Problem Qualifiers (1) Abdominal pain: Qualified Codes: R10.33 - Periumbilical pain (2) Diarrhea: Qualified Codes: R19.7 - Diarrhea, unspecified (3) Hematemesis: Qualified Codes: K92.0 - Hematemesis; R11.0 - Nausea Agapito So MD Apr 09, 2017 15:22
[2017-04-09] MEDS ORDERED: PEG (High)/E-LYTE SOLN 4000 ML BTL PO ONE (16:00)
--- NOTE | 2017-04-09 16:06 | EKG ---
Date Performed: 04/08/2017 Time Performed: 16:55:28 PTAGE: 31 years EKG: Sinus rhythm INCOMPLETE RIGHT BUNDLE BRANCH BLOCK NONSPECIFIC T WAVE CHANGES ANTERIORLY ABNORMAL ECG NO PREVIOUS TRACING DOCTOR: Federico Barragan Interpretating Date/Time 04/09/2017 16:04:46
--- NOTE | 2017-04-09 16:30 | HHI.HP ---
Provisional Diagnosis Admission Date Apr 08, 2017 at 12:55 [place] I. 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 Deferred [place] III. Kidney stones [place] IV. Chronic medical condition, good social support [place] V. 50 Certification of Person's Competence To Provide Express and Informed Consent I have personally examined Timothy Vela , a person being served at [facility] on, Apr 09, 2017 16:23. Express and informed consent means consent voluntarily given in writing, by a competent person, after sufficient explanation and disclosure of the subject matter involved to enable the person to make a knowing and willful decision without any element of force, fraud, deceit, duress, or other form of constraint or coercion. This person is 18 years of age or older, is not now known to be incompetent to consent to treatment with a guardian advocate, and does not have a health care surrogate or proxy currently making medical treatment decisions. I have found this person to be one of the following: [x] Competent to provide express and informed consent, as defined above, for voluntary admission to this facility and is competent to provide express and informed consent for treatment. He/she has the consistent capacity to make well reasoned, willful, and knowing decisions concerning his or her medical or mental health treatment. The person fully and consistently understands the purpose of the admission for examination/placement and is fully capable of personally exercising all rights assured [place] Incompetent to provide express and informed consent to voluntary admission, and this is incompetent to provide express and informed consent to treatment. The person must be transferred to involuntary status and a petition for a guardian advocate filed with the Circuit Court. [] Refusing to provide express and informed consent to voluntary admission but is competent to provide express and informed consent for treatment. The person must be discharged or transferred to involuntary status. Form shall be completed within 24 hours of a person's arrival at the receiving facility and filed in the clinical record of each person: 1. Admitted on a voluntary basis 2. Permitted to provide express and informed consent to his/her own treatment 3. Allowed to transfer from involuntary to voluntary status 4. Prior to permitting a person to consent to his or her own treatment after having been previously found incompetent to consent to treatment. History of Present Illness Capacity: Has Capacity HPI Patient is a 31-year-old man, with 3 stepchildren, past psychiatric history of depression, anxiety, PTSD, with no prior psychiatric hospitalizations, no prior suicide attempts or self-injurious behavior, was seen in the ED complaining of daily vomiting and diarrhea and was admitted voluntarily for psychiatric evaluation. As per ED note, patient noted to be anxious and, concerned about his current physical symptoms and was subsequently admitted to the inpatient medical/ psychiatry unit for further evaluation and management patient found lying in hospital bed, noted to be calm and cooperative interview. Patient states that he is feeling currently miserable but usually he is a very happy go melissa tyler . 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 Patient reports that recently he has been having decreased sleep energy concentration at times feeling helpless and hopeless due to not being able to manage these episodes of emesis. States that he is now enrolled in school for forensic investigations which she has 7 months left to finish and is concerned about being absent from classes. Patient reports that he is doing well in school but for the past couple weeks he has been noticing more episodes of vomiting and increased pain. She states his been trying over the years to cope with these episodes with various supplements, marijuana, and energy drinks which at times bring him some relief but despite continues to have these episodes. Patient states that although at times he feels depressed he has no will to continue living for his his family and for his own life. Patient stated he would like to have some answers as to why he is having these condition. At this time he reports feeling miserable as he had some episodes of vomiting this morning, but denies SI, HI, AVH or delusions. Past psychiatric history: previous psychiatric diagnoses of depression, anxiety PTSD, denies previous psychiatric hospitalizations, denies previous suicide attempt or self-interest behavior. Patient prescribed citalopram 20 mg by mouth daily by outpatient psychiatrist which she has taken for the past 5 months along with alprazolam (dose unspecified). Substance use history: Tobacco (+), denies any alcohol or any other illicit drug use aside from marijuana use 4-5 times for the past couple of weeks last time being couple of days ago. Denies previous detox or rehabilitation programs. Past medical history: Kidney stones Allergies: NKDA Social history: domiciled the and 3 stepchildren, currently enrolled in classes studying forensic investigation and highest education is 3 associates degrees. Review of Systems Except as stated in HPI: all other systems reviewed are Neg Past Psych History Psychological trauma history Patient previously served in the [employer] and reported trauma experienced through of service Violence risk - others (6 mos) Low Violence risk - self (6 mos) Low Substance Abuse History Drugs/Alcohol past 12 months Tobacco (+), denies alcohol or any other drug use aside from marijuana which she uses 4-5 times a day for the past couple of weeks. Past Family Social History Coded Allergies: No Known Allergies (Unverified , 04/07/17) Past Medical History Kidney stones Reported Medications Alprazolam (Xanax) 1 Mg Tab, 1 MG PO BID Y for ANXIETY, TAB 0 Refills 04/08/17 Citalopram (Citalopram) 10 Mg Tab, 15 MG PO DAILY for Control Depression, #30 TAB 0 Refills 04/08/17 Current Medications Medications (Trade) Dose Ordered Sig/Roque Route Start Time Stop Time Status Last Admin (NS Flush) 2 ml UNSCH PRN IVF 04/07/17 20:00 (Ativan) 1 mg Q6H PRN PO 04/08/17 13:00 04/09/17 08:05 (Ativan Inj) 1 mg Q6H PRN IM 04/08/17 13:00 (Tylenol) 650 mg Q4H PRN PO 04/08/17 13:00 04/09/17 02:13 (Milk Of Magnesia Liq) 30 ml DAILY PRN PO 04/08/17 13:00 (Mag-Al Plus Susp Liq) 30 ml Q6H PRN PO 04/08/17 13:00 04/08/17 20:16 (Habitrol 21 Mg Patch.24 Hr) 1 patch DAILY T-DERMAL 04/08/17 13:15 04/09/17 08:00 Miscellaneous Information 1 DAILY T-DERMAL 04/09/17 09:00 04/09/17 08:00 (Protonix) 40 mg DAILY PO 04/08/17 15:45 04/09/17 08:00 (Carafate Liq) 1 gm ACHS PO 04/08/17 16:00 04/09/17 11:00 Sodium Chloride 1,000 ml @ 100 mls/hr Q10H IV 04/08/17 15:45 04/09/17 13:22 (Zofran Inj) 4 mg Q4H PRN IV PUSH 04/09/17 14:15 04/09/17 14:39 (Morphine Inj) 2 mg Q3H PRN IV 04/09/17 14:15 04/09/17 14:33 (CeleXA) 40 mg DAILY PO 04/10/17 09:00 UNV Social History and living with and 3 stepchildren, currently studying forensic investigation, highest education is 3 associates degrees Patient's Strengths (min. 2) Verbally and communicative Physical Exam No tremors, no EPS, no sweating, no skin abnormalities, no withdrawal, no gait disturbances, no psychomotor agitation or retardation noted Vital Signs Vital Signs Date Time Temp Pulse Resp B/P (MAP) Pulse Ox O2 Delivery O2 Flow Rate FiO2 04/09/17 05:21 97.6 63 17 106/59 (75) 100 04/08/17 10:05 Room Air I/O 04/09/17 04/09/17 04/10/17 08:00 16:00 00:00 Intake Total 469 ml 477 ml Balance 469 ml 477 ml Mental Status Examination Appearance Patient appears stated age, in [facility], fair grooming and hygiene, calm and cooperative interview, fair eye contact Speech: Unremarkable Orientation: x3 Memory: Unremarkable Thought Process: Logical, Organized Thought Content: Unremarkable Language Fluent and spontaneous Fund of Knowledge Average Hallucination Type: None Attention and Concentration: Good Suicidal Ideation: No Previous Suicide Attempts: No Homicidal Ideation: No Previous Homicide Attempts: No Insight: Good Judgment: WNL Affect: Other (appeared to be uncomfortable due to recent vomiting) Mood: Other ("miserable") Motor Activity: Normal gait Assessment & Plan Problem List: (1) 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 Patient is a 31-year-old man who carries a diagnosis of depression, anxiety, PTSD, who was seen in the ER due to cyclic vomiting for the past 3 years and agrees for voluntary admission for psychiatric evaluation. Patient at this time does endorse some depressive symptoms but denies any thoughts of suicide nor does he endorse any manic or psychotic symptoms at this time. Patients depressive symptoms likely secondary to his current episodes of cyclic vomiting for the past 3 years which has impeded his function and life affecting his employ, difficulty with maintaining assistance with educational classes, and physically feeling ill during these episodes. Patient currently undergoing medical workup for these episodes of cyclic vomiting. Recommendations as per primary medical team. Will increase citalopram to 40 mg by mouth daily for her depressive symptoms. Monitor for medication response of her drug reactions. Discharge planning in progress Discharge Planning In progress Cory Knutson MD Apr 09, 2017 16:30
[2017-04-09 17:49] VITALS: BP 180/80; PULSE 88; RESP 18; TEMP 98.6; O2SAT 99
[2017-04-10] MEDS: MORPHINE SULFATE 4 MG/ML INJ IV PRN ×3 (02:26→08:06)
[2017-04-10] MEDS: SUCRALFATE 1 GM/10 ML CUP PO SCH ×2 (05:19→11:00)
[2017-04-10 06:23] VITALS: BP 129/70; PULSE 58; RESP 16; TEMP 97.9; O2SAT 97
[2017-04-10] MEDS: SODIUM CHLOR 0.9% 1000 ML INJ 1,000 ML IV SCH (07:45)
[2017-04-10] MEDS: PANTOPRAZOLE SOD 40 MG DELAYED RELEASE TAB PO SCH (08:03)
[2017-04-10] MEDS: REMOVE OLD PATCH T-DERMAL SCH (08:04)
[2017-04-10] MEDS: NICOTINE 21 MG/24 HR PATCH T-DERMAL SCH (08:04)
[2017-04-10] MEDS: ONDANSETRON HCL 4 MG/2 ML VIAL IV PUSH PRN (08:07)
[2017-04-10] MEDS ORDERED: CITALOPRAM HYDROBROMIDE 20 MG TAB PO SCH (09:00)
[2017-04-10] MEDS: LORazepam 1 MG TAB PO PRN (10:00)
[2017-04-10] MEDS ORDERED: CITA40TA4 PO (10:55)
[2017-04-10] MEDS ORDERED: PANT40TA3 PO (10:55)
--- NOTE | 2017-04-10 13:59 | HHI.DS ---
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 As per ED note, patient noted to be anxious and, concerned about his current physical symptoms and was subsequently admitted to the inpatient medical/ psychiatry unit for further evaluation and management patient found lying in hospital bed, noted to be calm and cooperative interview. Patient states that he is feeling currently miserable but usually he is a very happy go melissa tyler . 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 Patient reports that recently he has been having decreased sleep energy concentration at times feeling helpless and hopeless due to not being able to manage these episodes of emesis. States that he is now enrolled in school for forensic investigations which she has 7 months left to finish and is concerned about being absent from classes. Patient reports that he is doing well in school but for the past couple weeks he has been noticing more episodes of vomiting and increased pain. She states his been trying over the years to cope with these episodes with various supplements, marijuana, and energy drinks which at times bring him some relief but despite continues to have these episodes. Patient states that although at times he feels depressed he has no will to continue living for his his family and for his own life. Patient stated he would like to have some answers as to why he is having these condition. At this time he reports feeling miserable as he had some episodes of vomiting this morning, but denies SI, HI, AVH or delusions. Past psychiatric history: previous psychiatric diagnoses of depression, anxiety PTSD, denies previous psychiatric hospitalizations, denies previous suicide attempt or self-interest behavior. Patient prescribed citalopram 20 mg by mouth daily by outpatient psychiatrist which she has taken for the past 5 months along with alprazolam (dose unspecified). Substance use history: Tobacco (+), denies any alcohol or any other illicit drug use aside from marijuana use 4-5 times for the past couple of weeks last time being couple of days ago. Denies previous detox or rehabilitation programs. Past medical history: Kidney stones Allergies: NKDA Social history: domiciled the and 3 stepchildren, currently enrolled in classes studying forensic investigation and highest education is 3 associates degrees. Tobacco Use In Past 30 Days: 5 or More Cigarettes/Day Alcohol Use: Never Hospital Course Patient is a 31-year-old man, with 3 stepchildren, past psychiatric history of depression, anxiety, PTSD, with no prior psychiatric hospitalizations, no prior suicide attempts or self-injurious behavior, was seen in the ED complaining of daily vomiting and diarrhea and was admitted voluntarily for psychiatric evaluation. Patient was admitted to the inpatient medical/psychiatry unit for further management and stabilization. Patient was restarted on citalopram 20mg PO daily with upward titration to 40mg PO daily for depressive symptoms. Patient continued to have cyclic vomiting which the primary medical team requested GI consult for recommendations. Patient was managed for hypokalemia, nausea and vomiting, and hematemesis. Patient had EGD with normal results, colonoscopy also reported with normal study. Patient will be discharged to another facility to continue medical treatment as per primary medical team. On day of discharge, patient agreed to continue current treatment regimen and follow up with outpatient services for continuity of care. Supportive psychotherapy provided. Patient agrees with plan. Results Blood Pressure 129 / 70 Vital Signs Date Time Temp Pulse Resp B/P (MAP) Pulse Ox O2 Delivery O2 Flow Rate FiO2 04/10/17 06:23 97.9 58 16 129/70 (89) 97 04/08/17 10:05 Room Air Laboratory Tests Test 04/07/17 19:54 04/07/17 22:30 04/08/17 19:08 04/09/17 05:20 Hemoglobin 17.1 GM/DL (13.0-17.0) Monocytes % 9 % (0-8) Prothrombin Time 11.9 SEC (9.8-11.6) Total Protein 8.8 GM/DL (6.4-8.2) Estimat Glomerular Filtration Rate 82 ML/MIN (>89) Urine Color DARK-YELLOW (YELLW/STRAW) Urine Specific Heaters 1.039 (1.002-1.035) Urine Protein 30 mg/dL (NEG-TRACE) Urine Ketones 40 mg/dL (NEG) Urine Mucus MANY /lpf (OCC) Urine Opiates Screen POS (NEG) Urine Benzodiazepines Screen POS (NEG) Urine Cannabinoids Screen POS (NEG) Red Blood Count 4.41 MIL/MM3 (4.50-5.90) Platelet Count 147 TH/MM3 (150-450) Potassium Level 3.4 MEQ/L (3.5-5.1) LDL Cholesterol 131 MG/DL (0-99) HDL Cholesterol 36.9 MG/DL (40.0-60.0) Laboratory Results Test 04/09/17 05:20 Cholesterol Level 185 MG/DL (120-200) HDL Cholesterol 36.9 MG/DL (40.0-60.0) LDL Cholesterol 131 MG/DL (0-99) Triglycerides Level 86 MG/DL (42-150) Summary of Procedures EGD and Colonoscopy performed and reported normal studies. Pending results at discharge: No Medications # of Antipsychotic meds at D/C: 0 Approp Antipsych med options 1 - Minimum of three failed multiple trials of monotherapy. 2 - Documented plan to taper to monotherapy due to previous use of multiple meds OR cross-taper in progress at D/C. 3 - Documentation of augmentation of Clozapine. 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 [facility], fair hygiene and grooming, fair eye contact. 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 Cory Knutson at Smoking is Dangerous to Your Health. Avoid second hand smoking Cory Knutson MD Apr 10, 2017 13:59
[2017-04-10] MEDS: ACETAMINOPHEN 325 MG TAB PO PRN (14:05)
[2017-04-10 15:51] LABS: BICARBONATE 22.5 MEQ/L (21.0-32.0); POTASSIUM 3.3 MEQ/L (3.5-5.1)
[2017-04-10 15:52] LABS: HEMOGLOBIN A1a 1.1 %; HEMOGLOBIN A1b 0.7 %; HEMOGLOBIN F 0.8 %; HEMOGLOBIN LA1C 1.6 %; HEMOGLOBIN P3 3.2 %
== END 2017-04-10 14:50 | disposition short-term general hospital (02) | DRG 884 ==
LOC: NEPC 17:39 → NEDA 04-08 12:55 → H4EA 04-08 13:45
PROVIDERS: ADMIT Student in an Organized Health Care Education/Training Program; ATTEND Student in an Organized Health Care Education/Training Program
DX: F06.34 Mood disorder due to known physiological condition with mixed features (principal); K92.0 Hematemesis; R45.851 Suicidal ideations; K92.1 Melena; E87.6 Hypokalemia; F17.210 Nicotine dependence, cigarettes, uncomplicated; F43.10 Post-traumatic stress disorder, unspecified; R19.7 Diarrhea, unspecified; R63.4 Abnormal weight loss; G43.A0 Cyclical vomiting, in migraine, not intractable; F12.90 Cannabis use, unspecified, uncomplicated; F32.9 Major depressive disorder, single episode, unspecified; G89.29 Other chronic pain
CPT/HCPCS: 80048; 80053; 80061; 80307; 81001; 83036; 83690; 84146; 84443; 85007; 85027; 85610; 85652; 85730; 86140; 86703; 86850; 86900; 86901; 87205; 87328; 87329; 87506; 93005; 96361; 96374; 96375; 96376; C9113; J2060; J2270; J2405; J7030

== ENCOUNTER → 2017-04-10 | Outpatient (CLI) | payer OTHER ==
[~2017-04-10] VITALS: Ht 182.9 cm; Wt 82.0 kg
[~2017-04-10] MED LIST changes: +CHLORHEXIDINE GLUCONATE 2 % 1 PACK (2 CLOTHS) TOPICAL PRN; +CITA10TA4 PO; -CITA20TA4 PO; +CITA40TA4 PO; -HYDR-3533 PO; -IBUP600T26 PO; +INSULIN HUMAN REGULAR 1,000 UNITS/10 ML VIAL SQ PRN; +LACTATED RINGER'S 1000 ML IV PRN; -METH750T2 PO; +METOPROLOL TARTRATE 25 MG TAB PO PRN; +PANT40TA3 PO; -PHEN1TAB49 PO; +POVIDONE IODINE 5% (ANTISEPSIS KIT) 4 APPLICATIONS EACH NARE PRN; +PROPOFOL 1000 MG/100 ML BTL IV ONE; +SODIUM CHLORID 0.9% 500 ML IV PRN; -TAMS0.4C67 PO; +XANA1TAB2 PO
[2017-04-10 11:00] VITALS: BP 130/65; PULSE 65; RESP 18; TEMP 98.4; O2SAT 100
--- NOTE | 2017-04-10 13:21 | GIPROC ---
[facility] [address] [facility]. [facility], [address] EGD PROCEDURE REPORT EXAM DATE: 04/10/2017 PATIENT NAME: Timothy Vela MR #: [id number] BIRTHDATE: 1985 ATTENDING: Kannan Jensen MD ORDER #: [id number] ASSISTANT BANQUET MANAGER: Yelena Munroe and Jaqui Donahue STATUS: outpatient INDICATIONS: The patient is a 31 yr old male here for an EGD due to weight loss and vomiting PROCEDURE PERFORMED: EGD, diagnostic MEDICATIONS: None and Per Anesthesia. TOPICAL ANESTHETIC: none CONSENT: The patient understands the risks and benefits of the procedure and understands that these risks include, but are not limited to: sedation, allergic reaction, infection, perforation and/or bleeding. Alternative means of evaluation and treatment include, among others: physical exam, x-rays, and/or surgical intervention. The patient elects to proceed with this endoscopic procedure. medical equipment was checked for proper function. Hand hygiene and appropriate measures for infection prevention was taken. After the risks, benefits and alternatives of the procedure were thoroughly explained, Informed consent was verified, confirmed and timeout was successfully executed by the treatment team. The patient was anesthetized with topical anesthesia and the [id number] (Pedi C) endoscope was introduced through the mouth and advanced to the second portion of the duodenum. Retroflexion was performed and was normal The gastroscope was then slowly withdrawn and removed. The endoscopy was otherwise normal. ADVERSE EVENTS: There were no complications. IMPRESSIONS: 1. Normal endoscopy otherwise 2. Retroflexion was performed and was normal RECOMMENDATIONS: No treatment PATIENT CONDITION: stable DISPOSITION: Observation REPEAT EXAM: NONE Kannan Jensen MD eSigned: Kannan Jensen MD 04/10/2017 1:20 PM cc:
--- NOTE | 2017-04-10 13:24 | GIPROC ---
[facility] [address] [facility]. [facility], [address] COLONOSCOPY PROCEDURE REPORT EXAM DATE: 04/10/2017 PATIENT NAME: Timothy Vela MR #: [id number] BIRTHDATE: 1985 ENDOSCOPIST: Kannan Jensen MD ORDER #: [id number] WOOD GLUER: Yelena Munroe and Jaqui Donahue STATUS: outpatient INDICATIONS: The patient is a 31 yr old male here for a colonoscopy due to weight loss PROCEDURE PERFORMED: Colonoscopy, diagnostic MEDICATIONS: None and Per Anesthesia. PREP QUALITY: fair PREP TYPE:GoLytely PREP TYPE:Type: ESTIMATED BLOOD LOSS: None CONSENT: The patient understands the risks and benefits of the procedure and understands that these risks include, but are not limited to: sedation, allergic reaction, infection, perforation and/or bleeding. Alternative means of evaluation and treatment include, among others: physical exam, x-rays, and/or surgical intervention. The patient elects to proceed with this endoscopic procedure. medical equipment was checked for proper function. Hand hygiene and appropriate measures for infection prevention was taken. After the risks, benefits and alternatives of the procedure were thoroughly explained, Informed consent was verified, confirmed and timeout was successfully executed by the treatment team. A digital exam revealed no abnormalities of the rectum The Pentax [id number] endoscope was introduced through the anus and advanced to the cecum, which was identified by both the appendix and ileocecal valve. The instrument was then slowly withdrawn as the colon was fully examined. COLON FINDINGS: The colon mucosa was otherwise normal. The mucosa appeared normal and in the terminal ileum. Retroflexed views revealed no abnormalities The scope was then completely withdrawn from the patient and the procedure terminated. PROCEDURE WITHDRAWAL TIME:9minutes ADVERSE EVENTS: There were no complications. IMPRESSIONS: 1. The colon mucosa was otherwise normal 2. The mucosa appeared normal and in the terminal ileum 3. Retroflexed views revealed no abnormalities of the rectum RECOMMENDATIONS: No treatment RECALL: NONE Kannan Jensen MD eSigned: Kannan Jensen MD 04/10/2017 1:23 PM cc:
[2017-04-10 13:38] VITALS: BP 146/80; PULSE 63; RESP 18; TEMP 98.6; O2SAT 100
== END ==
LOC: HSDC 10:54
PROVIDERS: ATTEND Specialist
DX: R63.4 Abnormal weight loss (principal); R11.10 Vomiting, unspecified